=== PATIENT | female | born 1960 | race Caucasian/White ===

== ENCOUNTER → 2022-07-15 | Day surgery (SDC) | payer OTHER ==
[~2022-07-15] MED LIST: AMLODIPINE BESYL5 MG PO; APRESOLINE25 MG PO; CEFDINIR300 MG PO; CELEXA10 MG PO; CELEXA40 MG PO; CIPRO500 MG PO; CIPROFLOXACIN500 MG PO; CLONIDINE HCL0.2 MG PO; DIFLUCAN100 MG PO; DUONEB 3 MG/3 ML3 M1 NEB; GABAPENTIN300 MG PO; GABAPENTIN600 MG PO; GLUCOPHAGE500 MG PO; LABETALOL HCL100 MG PO; LABETALOL HCL200 MG PO; LABETALOL HCL300 MG PO; LISINOPRIL20 MG PO; LORAZEPAM0.5 MG PO; METFORMIN HCL1000 MG PO; METFORMIN HCL500 MG PO; MYCOLOG CREAM 115 GM PO; NAPROXEN500 M1 PO; NORCO 325 MG-51 TAB PO; NORMODYNE,TRAN200 MG PO; OCUFLOX 5 ML5 ML OP; OXYBUTYNIN CHLOR5 MG PO; PREDNISONE5 MG PO; PRILOSEC40 M1 PO; PRILOSEC40 MG PO; PROAIR HFA0.09 MG/AC INH; SIMVASTATIN20 MG PO; TRANDATE100 M1 PO; ZESTRIL10 MG PO
[2022-07-15 07:10] VITALS: BP 143/55
[2022-07-15 08:48] VITALS: BP 146/69
[2022-07-15 09:03] VITALS: BP 155/80
[2022-07-15 09:14] VITALS: BP 144/76
== END | disposition home or self-care (01) ==
LOC: SDC 07-11 09:30
PROVIDERS: ATTEND Specialist
DX: H65.493 Other chronic nonsuppurative otitis media, bilateral (principal)